=== PATIENT | male | born 1985 | race Two or more races ===

== ENCOUNTER 2024-11-14 11:13 | Emergency (ER) | payer MEDICAID ==
[~2024-11-14] VITALS: Ht 180.3 cm; Wt 84.1 kg
[2024-11-14 11:45] LABS: PLATELET COUNT (AUTO) 289 K/uL (150-450); RED BLOOD CELL COUNT(AUTO) 4.38 MIL/uL (4.50-5.90); RED CELL DISTRIBUTION WIDTH 12.2 % (11.5-14.5); WHITE BLOOD COUNT (AUTO) 4.9 K/uL (4.5-11.0)
[2024-11-14 11:53] LABS: CALCIUM, TOTAL 8.0 mg/dL (8.8-10.5); CREATININE 0.78 mg/dL (0.60-1.30); GLOMERULAR FILTR. RATE CALC > 60 mL/min (>60); GLUCOSE,RANDOM 102 mg/dL (70-110); SODIUM SERUM 137 mmol/L (136-145); UREA NITROGEN, BLOOD 13 mg/dL (7-18)
[2024-11-14 12:03] LABS: TROPONIN I-HIGH SENSITIVITY 5 ng/L (<76)
[2024-11-14 12:03] LABS: APPEARANCE,URINE CLEAR (CLEAR); GLUCOSE, URINE (UA) NEGATIVE (NEGATIVE); LEUKOCYTE ESTERASE ,URINE NEGATIVE (NEGATIVE); NITRATE,URINE NEGATIVE (NEGATIVE); OCCULT BLOOD,URINE NEGATIVE (NEGATIVE); PH,URINE DRUG SCREEN 6.5 (5.0-8.0); SPECIFIC GRAVITIY, URINE 1.018 (1.003-1.030)
[2024-11-14 12:06] LABS: ASPARTATE AMINOTRANSFERASE 47.0 U/L (15-37); TOTAL PROTEIN, SERUM 7.5 g/dL (6.4-8.2)
[2024-11-14 12:10] LABS: ALCOHOL, URINE DRUG SCREEN NEGATIVE (NEGATIVE); AMPHET/METH SCREEN,URINE NEGATIVE (NEGATIVE); BARBITURATE SCREEN, URINE NEGATIVE (NEGATIVE); CANNABINOID SCREEN,URINE NEGATIVE (NEGATIVE); COCAINE SCREEN,URINE NEGATIVE (NEGATIVE); METHADONE SCREEN, URINE NEGATIVE (NEGATIVE)
[2024-11-14 12:46] VITALS: BP 125/76; PULSE 76; RESP 16; TEMP 98.2; O2SAT 99
== END 2024-11-14 12:51 | disposition home or self-care (01) ==
LOC: EMS 11:13
DX: I95.1 Orthostatic hypotension (principal)
CPT/HCPCS: 80048; 80076; 80307; 81003; 84484; 85025; 93005; 99284